=== PATIENT | male | born 1995 | race Caucasian/White ===

== ENCOUNTER 2022-12-08 14:11 | Outpatient (CLI) | payer OTHER, SELFPAY ==
--- NOTE | ~2022-12-08 | CT_ITS ---
EXAMINATION: CT facial bones wo con DATE: 12/08/2022 14:43 INDICATION: Arthralgia of temporomandibular joint. TECHNIQUE: Computed tomography (CT) of the facial bones and maxillofacial region was performed withou t intravenous contrast. Automated exposure control and iterative reconstruction technique were employ ed. The dose-length product was 267.48 mGy-cm. COMPARISON: None. FINDINGS: There is mucosal thickening in the paranasal sinuses. There is rightward deviation of anter ior nasal septum and leftward deviation of posterior nasal septum. Right mandibular condyle is smalle r than the left. There is mild osteoarthritis of the temporomandibular joints characterized by tiny o steophytes. IMPRESSION: 1. Mild osteoarthritis of the temporomandibular joints. Reviewed, dictated and finalized at location E.
== END 2022-12-08 14:12 | disposition home or self-care (01) ==
PROVIDERS: PCP Emergency Medicine; Visit Provider Emergency Medicine
DX: M26.629 Arthralgia of temporomandibular joint, unspecified side (principal)
CPT/HCPCS: 70486

== ENCOUNTER 2022-12-20 14:48 | Outpatient (CLI) | payer OTHER, SELFPAY ==
[2022-12-20 19:50] LABS: Basophils Absolute Auto 0.1 K/mm3 (0.0-0.1); Basophils Percent Auto 0.9 % (0.2-1.2); Eosinophils Absolute Auto 0.1 K/mm3 (0-0.3); Eosinophils Percent Auto 1.9 % (0-4.4); Hematocrit 46.3 % (42.0-52.0); Hemoglobin 15.6 g/dL (14.0-18.0); Immature Granulocyte Absolute 0.02 K/mm3 (0.00-0.031); Immature Granulocyte Percent A 0.3 % (0-0.5); Lymphocytes Absolute Auto 2.47 K/mm3 (0.9-3.2); Lymphocytes Percent Auto 35.4 % (18.3-44.2); Mean Corpuscular HGB Conc 33.7 g/dl (32-36); Mean Corpuscular Hemoglobin 32.1 pg (26-34); Mean Corpuscular Volume 95.3 fl (80-100); Mean Platelet Volume 10.6 fl (7.4-10.4); Monocytes Absolute Auto 0.4 K/mm3 (0.1-0.6); Monocytes Percent Auto 6.2 % (2.6-8.5); Neutrophils Absolute Auto 3.9 K/mm3 (1.3-6.7); Neutrophils Percent Auto 55.3 % (45.5-73.1); Platelet Count Result 301 k/mm3 (150-375); Red Blood Count 4.86 M/mm3 (4.6-6.20); Red Cell Distribution Width 12.3 % (11.5-14.5)
[2022-12-20 20:38] LABS: Alanine Aminotransferase 19 U/L (6-50); Albumin Level 5.1 g/dL (3.5-5.1); Alkaline Phosphatase 75 U/L (38-126); Anion Gap 13 mmol/L (8-16); Aspartate Amino Transferase 49 U/L (17-59); Bilirubin,Total 0.4 mg/dL (0.2-1.3); Blood Urea Nitrogen 9 mg/dL (9-20); CRP < 0.5 mg/dL (<1.0); Calcium 9.9 mg/dL (8.4-10.2); Carbon Dioxide 32 mmol/L (22-30); Chloride 98 mmol/L (98-107); Estimated Glomerular Filt Rate > 60; Glucose 70 mg/dL (65-110); Potassium 4.2 mmol/L (3.4-5.0); Sodium 143 mmol/L (137-145)
[2022-12-20 20:39] LABS: Rheumatoid Factor < 12.0 IU/ML (<12)
[2022-12-20 20:41] LABS: Erythrocyte Sedimentation Rate 4 mm/hr (0-20)
[2022-12-20 20:57] LABS: HIV 1/2 Ab P24 Ag Result Negative (Negative)
[2022-12-23 07:14] LABS: Lyme Disease Ab (IgM), Blot Negative (Negative); Lyme Disease Ab(IgG), Blot Negative (Negative)
== END 2022-12-20 14:49 | disposition home or self-care (01) ==
LOC: ANHGOSHLAB 14:49
PROVIDERS: PCP Emergency Medicine; Visit Provider Emergency Medicine
DX: M25.50 Pain in unspecified joint (principal); R59.1 Generalized enlarged lymph nodes
CPT/HCPCS: 36415; 80053; 85025; 85652; 86038; 86140; 86430; 86617; 86703; G0432

== ENCOUNTER 2023-01-21 12:30 | Outpatient (RCR) | payer OTHER, SELFPAY ==
--- NOTE | 2022-12-24 10:32 | PTOPEVAL1 ---
Assessment and note entered by Victor Manuel Whitaker, PT Evaluation Information Assessment Status Evaluation Diagnosis Arthralgia of TMJ Onset 06/16/21 Subjective Information Reports that he received the covid vaccine and 5 days after that his jaw never stopped hurting. Reports that he had this pain off and on for a few years but never this bad. From June to july he was very nauseous. He has to hold his face to prevent pain. Feel that his jaw is hypermobile and he feels he has to protect it at all times. Pain is better but he is nervous about it getting worse again. Most of pain is on the left. Reported Pain Level Pain Score 0: Self Report Additional Pain Score Comments Denies any tension headaches Assessment PT Clinical Summary Patient presents with objective deficits limiting jaw deviation and opening. He is very guarded with motion and at times seems self limiting to prevent pain symptoms. Minor cervical mobility deficits which are likely related to tension and guarding from jaw activity. He has seen extensive specialists at this point to address issues with minimal relief although he has reflected slow progress at this point. Plan of Care Interventions Hot Pack/Cold Pack,Manual Therapy,Therapeutic Activities,Therapeutic Exercise PT Services Indicated Yes These treatments will address the objective and functional deficits as defined above. The patient will be advanced safely and appropriately in order for the patient to progress towards his/her prior level of function. Additional exercises will be introduced and as well as a comprehensive home exercise program upon discharge, if needed, ?to ensure carryover of functional gains achieved in the clinic. This treatment plan has been reviewed and agreement upon by the patient.
--- NOTE | 2022-12-24 10:35 | OPREHPOC ---
Outpatient Therapy Plan of Care This is a Multidisciplinary Plan of Care that may contain components documented by all disciplines (PT, OT, and ST.) PT Problem 1 PT Problem #1 Knowledge Deficit PT Goal 1 Goal [place] with HEP Target Visit 8 PT Problem 2 PT Problem #2 Pain PT Goal 1 Goal Report no pain greater than 1/10 with jaw opening and closing Target Visit 8 PT Problem 3 PT Problem #3 Impaired Range of Motion PT Goal 1 Goal Demonstrate ability to deviate jaw laterally bilaterally 10mm+ for functional chewing and functional ROM Target Visit 8 PT Goal 1 Goal Demonstrate reduced guarding indicated by lack pof personal contact with jaw during vocalization Target Visit 8
--- NOTE | 2023-01-21 13:14 | PTOPDC ---
Assessment and note entered by Royx Jarvis, PT, DPT Evaluation Information Assessment Status Discharge Diagnosis Arthralgia of TMJ Onset 06/16/21 Subjective Information Pt states his jaw mobility is about the same but the mobility of his face and neck has improved. He feels like there is less pressure in his face. Pt states he has not had any pain and he usually does not unless he tries to open his jaw. Reported Pain Level Pain Score 0: Self Report Assessment PT Clinical Summary Tapan presents to therapy today for his follow up after 8 visits of skilled therapy. He reports decreased jaw pain as rest but is still reluctant to open his jaw during conversation. He states his facial tension has also decreased. He states he would like to be discharged at this time to try to find the root cause of his jaw pain. Plan of Care PT Services Indicated No
== END 2023-01-21 15:06 | disposition home or self-care (01) ==
LOC: ANHGOSHPT 12:30
PROVIDERS: PCP Emergency Medicine; Visit Provider Emergency Medicine
DX: M26.629 Arthralgia of temporomandibular joint, unspecified side (principal)
CPT/HCPCS: 97110; 97140; 97161

== ENCOUNTER 2023-06-27 10:34 | Emergency (ER) | payer OTHER, SELFPAY ==
[2023-06-27 10:41] VITALS: BP 164/85; PULSE 115; RESP 20; TEMP 37.6; O2SAT 100
--- NOTE | 2023-06-27 10:41 | ED.GENADULT ---
HPI - General Adult General Chief complaint: Unspecified Stated complaint: Jaw pain;Bladder;Chest pain Source: patient, RN notes reviewed and old records reviewed Mode of arrival: ambulatory Limitations: no limitations History of Present Illness HPI narrative: 28-year-old male patient presents to [facility] with complaint of urinary frequency, constant urge to urinate, lower abdominal pain, groin pain, and right testicular pain for the last 2-3 days. Patient also complaining jaw and neck pain. Patient states tested positive for COVID last week. patient denies concerns for STDs. . Related Data Allergies Allergy/AdvReac Type Severity Reaction Status Date / Time sertraline Allergy Unknown paranoia, Verified 06/27/23 10:42 anxiety carbamazepine AdvReac Intermediate Nausea Verified 06/27/23 10:42 Review of Systems Constitutional: Constitutional: Reports no additional constitutional complaints, Denies body ache(s), Denies chills, Denies fatigue, Denies fever(s) and Denies headache(s) Eyes: Eyes: Reports no additional eye complaints and Denies blurry vision ENT: Reports system reviewed and no additional complaints, except as documented, Denies vertigo, Denies dizziness, Denies ear discharge, Denies otalgia, Reports facial pain, Denies headache(s), Denies nasal congestion, Denies nasal discharge, Denies sinus pain, Denies sinus pressure and Denies sore throat Cardiovascular: Cardiovascular: Reports no additional cardiovascular complaints, Denies chest pain, Denies chest pain at rest, Denies rapid heart rate and Denies dyspnea Respiratory: Respiratory: Reports no additional respiratory complaints, Denies chest congestion, Denies cough, Denies pain on inspiration, Denies pain with cough and Denies dyspnea Gastrointestinal: Gastrointestinal: Reports abdominal pain, Denies diarrhea, Denies nausea and Denies vomiting Genitourinary: Genitourinary: Reports as per HPI, Denies genital lesions, Reports dysuria, Denies flank pain, Denies penile discharge, Denies scrotal swelling, Denies testicular mass, Reports testicular pain, Reports urinary frequency, Denies urinary hesitancy, Denies urinary incontinence and Reports urinary urgency Integumentary/Breasts: Skin/Breast: Denies rash Neurologic: Reports system reviewed and no additional complaints, except as documented, Denies vertigo, Denies dizziness and Denies headache(s) Endocrine: Endocrine: Denies fatigue PMFSH Social History Social History Smoking status: Never smoker Alcohol intake: never Substance use type: does not use Lack of Transportation: No Lack of Food: Never True Current Housing: I Have Housing Concerned About Future Housing: No Difficulty Paying Gas/Electric Bills: No Difficulty Paying for Meds: No Currently Unemployed: No Education: Associate Degree Difficulty w/ Childcare or Family Care: No Comments At the time of my signature, I reviewed and agree with the nursing past medical, surgical, social, and family history. There is no relevant family history pertinent to the patient complaint. Exam Const: General: cooperative, healthy appearing, no acute distress and well nourished Nutritional Appearance: well nourished Orientation/consciousness: patient oriented x3 Limitations: no limitations HENMT: Head: normal to inspection and normocephalic Ears: external ears normal, TM's normal bilaterally, mastoids normal and Abnormal EAC present Face/Nose/Sinus: normal facial exam Face and sinus: normal facial exam Mouth: Yes Normal oral and palatal mucosa present, Yes oropharynx normal and Yes moist mucous membranes Throat: tonsils normal, uvula midline and no uvular edema Eyes: General: appearance normal, both eyes and all related structures Sclera: sclerae normal Pupils: Equal, round and reactive pupils present Resp: Effort & Inspection: normal respiratory effort, able to speak in complete
== END 2023-06-27 11:08 | disposition home or self-care (01) ==
PROVIDERS: Emergency Provider Registered Nurse; PCP Emergency Medicine
DX: N50.811 Right testicular pain (principal); R10.30 Lower abdominal pain, unspecified; F41.9 Anxiety disorder, unspecified
CPT/HCPCS: 81003; 99212; G0463

== ENCOUNTER 2024-03-13 08:07 | Outpatient (RCR) | payer OTHER, SELFPAY ==
--- NOTE | 2024-03-13 11:27 | OPREHPOC ---
Outpatient Therapy Plan of Care This is a Multidisciplinary Plan of Care that may contain components documented by all disciplines (PT, OT, and ST.) PT Problem 1 PT Problem #1 Knowledge Deficit PT Goal 1 Goal / Goal Update [place] with HEP Target Visit 4 PT Problem 2 PT Problem #2 Impaired Range of Motion PT Goal 1 Goal / Goal Update Demonstrate 40 degrees of jaw opening for improved speech and eating Target Visit 8 PT Goal 2 Goal / Goal Update Improve [place] cervical rotation to 70 degrees to improve facet glide and field of view Target Visit 8 PT Problem 3 PT Problem #3 Impaired Range of Motion PT Goal 1 Goal / Goal Update Improve [place] cervical side bending to 40+ degrees for improved facet glide and reduced cervical tension to relax muscled of face and jaw. Target Visit 8
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
--- NOTE | 2024-03-15 14:05 | PCPTNOTE ---
Patient called to cancel due to not feeling well.
--- NOTE | 2024-03-20 16:00 | PCPTNOTE ---
Patient was a No Show/No Call for today's appointment 03/20/24.
--- NOTE | 2024-03-22 14:37 | PCPTNOTE ---
Patient was a No Show/No Call for today's appointment 03/22/24.
--- NOTE | 2024-03-27 08:52 | PCPTNOTE ---
Patient was a No Show/No Call for today's appointment. I left patient a voicemail to reach out to me by the end of the day or would be discharged per attendance policy.
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
== END 2024-03-30 10:36 | disposition home or self-care (01) ==
LOC: ANHGOSHPT 08:07
PROVIDERS: PCP Emergency Medicine
DX: M26.609 Unspecified temporomandibular joint disorder, unspecified side (principal)
CPT/HCPCS: 97110; 97140; 97161

== ENCOUNTER 2024-03-29 08:42 | Emergency (ER) | payer OTHER, SELFPAY ==
[2024-03-29 08:43] VITALS: BP 136/73; PULSE 80; RESP 16; TEMP 36.4; O2SAT 98
--- NOTE | 2024-03-29 11:34 | ED_ITS ---
HPI - General Adult General Chief complaint: Dental/Oral Stated complaint: TMJ PROBLEMS Time Seen by Provider: 03/29/24 10:45 History of Present Illness HPI narrative: 29-year-old male present to the emergency department for evaluation for acute on chronic TMJ pain. Patient has had follow-up with ENT previously and pain specialist and patient is currently on Toradol, naproxen and Valium. Patient states that these medications are not helping and is requesting additional medication for pain control. Patient denies any new injuries. Related Data Allergies Allergy/AdvReac Type Severity Reaction Status Date / Time sertraline Allergy Unknown paranoia, Verified 10/11/23 16:13 anxiety carbamazepine AdvReac Intermediate Nausea Verified 10/11/23 16:13 Review of Systems Review of Systems: All systems reviewed & are unremarkable except as noted in HPI and below PMFSH Past Medical History Medical History (Updated 03/29/24 @ 11:50 by Marvin Mckoy MD) TMJ (temporomandibular joint syndrome) Social History Social History Smoking status: Never smoker Alcohol intake: never Substance use type: does not use Lack of Transportation: No Lack of Food: Never True Current Housing: I Have Housing Concerned About Future Housing: No Difficulty Paying Gas/Electric Bills: No Difficulty Paying for Meds: No Currently Unemployed: No Education: Associate Degree Difficulty w/ Childcare or Family Care: No Exam Narrative: APPEARANCE: Well appearing, no pain, no distress, well-nourished. HEAD: Left-sided TMJ pain EYES: PERRLA/EOMI, conjunctivae clear. NOSE: Normal no drainage EARS:TMS clear with good light reflex. THROAT: Pharynx clear, no exudate. Mouth: Patient's jaw is clenched NECK: Supple. No adenopathy, no masses. RESPIRATORY: Airway patent, respirations nonlabored. Clear to auscultation bilaterally, no rales, rhonchi, wheezing. CARDIOVASCULAR: Regular rate and rhythm without murmurs rubs or gallops. ABDOMINAL: Soft, nontender, nondistended, normal bowel sounds MUSCULOSKELETAL: Moves all extremities. Strength/ROM intact, No edema, No calf tenderness. NEURO: Alert. Cranial nerves II through XII intact. Grossly intact SKIN: Warm, dry. Normal Color Course Vital Signs Vital signs: Vital Signs Temperature 97.5 F L 03/29/24 08:43 Pulse Rate 80 03/29/24 08:43 Respiratory Rate 16 03/29/24 08:43 Blood Pressure 136/73 03/29/24 08:43 Pulse Oximetry 98 03/29/24 08:43 Oxygen Delivery Room Air 03/29/24 08:43 Temperature 97.5 F L 03/29/24 08:43 Pulse Rate 84 03/29/24 12:06 Respiratory Rate 14 03/29/24 12:06 Blood Pressure 132/74 03/29/24 12:06 Pulse Oximetry 98 03/29/24 12:06 Oxygen Delivery Room Air 03/29/24 08:43 Medical Decision Making MDM Narrative Medical decision making narrative: 29-year-old male presenting to the emergency department for evaluation for worsening left-sided TMJ. Patient denies any specific falls or injuries. Patient does not appear to be in significant distress. Patient was treated with Toradol Flexeril and [place] and does feel improved. Patient was started on Medrol Dosepak for home and provided this medication for pain control. Patient was encouraged to have close follow-up with ENT and additionally to continue have follow-up with pain specialist. All questions concerns were addressed patient was well-appearing at time of discharge. Differential Diagnosis Differential Diagnosis: TMJ syndrome, TMJ dislocation, spasm, dental pain Vital Signs Vital Signs: Vital Signs Temperature 97.5 F L 03/29/24 08:43 Pulse Rate 80 03/29/24 08:43 Respiratory Rate 16 03/29/24 08:43 Blood Pressure 136/73 03/29/24 08:43 Pulse Oximetry 98 03/29/24 08:43 Oxygen Delivery Room Air 03/29/24 08:43 Temperature 97.5 F L 03/29/24 08:43 Pulse Rate 84 03/29/24 12:06 Respiratory Rate 14 03/29/24 12:06 Blood Pressure 132/74 03/29/24 12:06 Pulse Oximetry 98 03/29/24 12:06 Oxygen Delivery Room Air 03/29/24 08:43 Discharge Plan Discharge Clinical Impression: TMJ (dislocation of temporomandibular joint) Patient Disposition: Home, Self-Care Condition: Stable Instructions: Antibiotic Form, Temporomandibular Disorder (ED) Additional Instructions: Scheduled naproxen for pain control. Flexeril for muscle spasm. Medrol Dosepak as directed. Continue to have close follow-up with your ENT. If you have any worsening symptoms please call or return to the emergency department. Prescriptions: New methylprednisolone [Medrol (Star)] 4 mg tablets,dose pack See Rx Instructions .ROUTE .COMPLEX Qty: 21 0RF Rx Instructions: for 6 days cyclobenzaprine 10 mg tablet 10 mg PO BID PRN (Reason: muscle spasm) Qty: 14 0RF No Action methylprednisolone [Medrol (Star)] 4 mg tablets,dose pack See Rx Instructions PO PER PKG DIR Qty: 21 0RF Rx Instructions: PO PER PKG DIR pantoprazole 40 mg tablet,delayed release (DR/EC) 40 mg PO QAM Qty: 30 0RF valacyclovir [Valtrex] 1 gram tablet 2,000 mg PO BID Qty: 4 4RF Rx Instructions: take two now and repeat in 12 hrs Paxlovid 300 mg (150 mg x 2)-100 mg tablets,dose pack See Rx Instructions PO .COMPLEX Qty: 30 0RF Rx Instructions: take TWO 150 mg tablets of nirmatrelvir with ONE 100 mg tablet of ritonavir twice daily for 5 days PO ketorolac 10 mg tablet 10 mg PO Q8H PRN (Reason: pain) Qty: 20 0RF Rx Instructions: maximum total duration of 5 days from all oral, intranasal, or parenteral formulations diazepam 5 mg tablet 5 mg PO BID Qty: 60 0RF Follow-up/Referrals: Evelin Sanchez, SANDING MACHINE OPERATOR OR TENDER-C [Primary Care Provider] - Stand Alone Forms: Work/School Release IP
[2024-03-29] MEDS: HYDROcodone/acetaminophen (*CRX) 5-325 MG TABLET 1 TAB PO (11:42)
[2024-03-29] MEDS: CYCLOBENZAPRINE HCL 10 MG TABLET PO (11:43)
[2024-03-29] MEDS: KETOROLAC 30 MG/ML VIAL (*BKC) IM (11:43)
[2024-03-29 12:06] VITALS: BP 132/74; PULSE 84; RESP 14; O2SAT 98
== END 2024-03-29 12:10 | disposition home or self-care (01) ==
PROVIDERS: Emergency Provider Emergency Medicine; PCP Nurse Practitioner Family
DX: S03.02XA Dislocation of jaw, left side, initial encounter (principal)
CPT/HCPCS: 96372; 99283; A9270; J1885

== ENCOUNTER 2025-05-07 11:39 | Emergency (ER) | payer SELFPAY ==
[2025-05-07 11:55] VITALS: BP 121/81; PULSE 93; RESP 16; TEMP 37.2; O2SAT 99
[2025-05-07] MEDS: KETOROLAC 30 MG/ML VIAL (*BKC) IM (14:04)
[2025-05-07] MEDS: METOCLOPRAMIDE HCL INJ 10 MG/2 ML VIAL IM (14:04)
[2025-05-07] MEDS: diazePAM INJ (*CRX) 10 MG/2 ML SYRINGE 5 MG IM (14:05)
[2025-05-07] MEDS: HYDROmorphone HCL INJ (*CRX) 1 MG/ML SYR 0.5 MG IM (14:45)
[2025-05-07 14:47] VITALS: BP 106/60; PULSE 73; RESP 14; O2SAT 100
--- NOTE | 2025-05-07 20:26 | ED_ITS ---
HPI - Dental/Oral General Chief complaint: Dental/Oral Stated complaint: jaw pain Time Seen by Provider: 05/07/25 13:47 History of Present Illness HPI Narrative: Patient with history of TMJ for last few years presents here with exacerbation of his TMJ. He has tried multiple medications including Valium, steroids which he is currently on pack of it, and Toradol, without much improvement today, pain was excruciating to the point where he came in. Has an appointment coming up with an oral surgeon for possible Botox. Related Data Allergies Allergy/AdvReac Type Severity Reaction Status Date / Time sertraline Allergy Unknown paranoia, Verified 05/07/25 12:01 anxiety carbamazepine AdvReac Intermediate Nausea Verified 05/07/25 12:01 Penicillins AdvReac Mild Nausea and Verified 05/07/25 12:01 Vomiting Review of Systems Review of Systems: All systems reviewed & are unremarkable except as noted in HPI and below PMFSH Past Medical History Medical History (Updated 05/07/25 @ 15:39 by Yadira Buck MD) TMJ (temporomandibular joint syndrome) Social History Social History Smoking status: Never smoker Alcohol intake: never Substance use type: does not use Lack of Transportation: No Lack of Food: Never True Current Housing: I Have Housing Concerned About Future Housing: No Difficulty Paying Gas/Electric Bills: No Difficulty Paying for Meds: No Currently Unemployed: No Education: Associate Degree Difficulty w/ Childcare or Family Care: No Exam Narrative: EXAMINATION OF ORGAN SYSTEMS/BODY AREAS: Constitutional: Vital signs per nursing GENERAL: Patient appears slightly uncomfortable HEAD: Normal with no signs of head trauma. EYES: EOMI, conjunctiva normal ENT: Jaw is clenched, no malocclusion, speaking with normal voice LUNGS: Nonlabored breathing. HEART: Regular rate and rhythm ABD: Soft, nontender to palpation EXT: Normal range of motion SKIN: No rashes or lesions. NEURO: Alert. No gross focal sensory or strength deficits. PSYCH: Normal affect Course Vital Signs Vital signs: Vital Signs Temperature 99.0 F 05/07/25 11:55 Pulse Rate 93 05/07/25 11:55 Respiratory Rate 16 05/07/25 11:55 Blood Pressure 121/81 05/07/25 11:55 Pulse Oximetry 99 05/07/25 11:55 Oxygen Delivery Room Air 05/07/25 11:55 Temperature 99.0 F 05/07/25 11:55 Pulse Rate 73 05/07/25 14:47 Respiratory Rate 14 05/07/25 14:47 Blood Pressure 106/60 05/07/25 14:47 Pulse Oximetry 100 05/07/25 14:47 Oxygen Delivery Room Air 05/07/25 11:55 MDM MDM Narrative Medical decision making narrative: Patient presenting here what feels like flare-up of his TMJ; he has already been on steroids, taking his muscle relaxants and Toradol, symptoms are still persistent. On exam he does appear uncomfortable, jaws clenched. I did initially try Toradol, Reglan since he was feeling slightly nauseous, and Valium, on re- evaluation he is still having pain, small dose of Dilaudid then given and he does have some relief. Agreeable to outpatient management and return precautions. Differential Diagnosis Differential Diagnosis: TMJ, dental abscess, locked jaw etc. Discharge Plan Discharge Clinical Impression: TMJ (temporomandibular joint syndrome) Patient Disposition: Home Condition: Stable Instructions: Temporomandibular Disorder (ED) Additional Instructions: Please follow up with your oral surgeon, you can return to the ER for further issues. Patient Language: Greek Prescriptions: New oxycodone 5 mg capsule 5 mg PO Q8H PRN (Reason: pain) Qty: 7 0RF No Action methylprednisolone [Medrol (Star)] 4 mg tablets,dose pack See Rx Instructions PO PER PKG DIR Qty: 21 0RF Rx Instructions: PO PER PKG DIR pantoprazole 40 mg tablet,delayed release (DR/EC) 40 mg PO QAM Qty: 30 0RF methylprednisolone [Medrol (Star)] 4 mg tablets,dose pack See Rx Instructions .ROUTE .COMPLEX Qty: 21 0RF Rx Instructions: for 6 days cyclobenzaprine 10 mg tablet 10 mg PO BID PRN (Reason: muscle spasm) Qty: 14 0RF Paxlovid 300 mg (150 mg x 2)-100 mg tablets,dose pack See Rx Instructions PO .COMPLEX Qty: 30 0RF Rx Instructions: take TWO 150 mg tablets of nirmatrelvir with ONE 100 mg tablet of ritonavir twice daily for 5 days PO ketorolac 10 mg tablet 10 mg PO Q8H PRN (Reason: pain) Qty: 20 0RF Rx Instructions: maximum total duration of 5 days from all oral, intranasal, or parenteral formulations valacyclovir [Valtrex] 1 gram tablet 2,000 mg PO BID Qty: 4 4RF Rx Instructions: take two now and repeat in 12 hrs diazepam 5 mg tablet 5 mg PO BID Qty: 60 1RF Follow-up/Referrals: Evelin Sanchez, CATH LAB RADIOLOGY TECHNICIAN, ASSOCIATE PROFESSOR OF ECONOMICS-C [Primary Care Provider, Family Practice]
== END 2025-05-07 15:50 | disposition home or self-care (01) ==
PROVIDERS: Emergency Provider Emergency Medicine; PCP Nurse Practitioner Family
DX: M26.609 Unspecified temporomandibular joint disorder, unspecified side (principal)
CPT/HCPCS: 96372; 99284; J1171; J1885; J2765; J3360